=== PATIENT | male | born 1990 | race Caucasian/White ===

== ENCOUNTER 2019-05-10 20:37 | Emergency (ER) | payer SELFPAY ==
[2019-05-10] MEDS ORDERED: Diphtheria,Pertussis(Acell),Tetanus Vaccine 0.5 ML SDV IM ONE (20:54)
[2019-05-10] MEDS ORDERED: Bacitracin/Neomycin/Polymyxin B Oint 0.9 GM U/D Packet TOP ONE (20:54)
--- NOTE | 2019-05-10 20:54 | EDM.PDOC ---
ED HPI GENERAL MEDICAL PROBLEM - General Chief Complaint: Laceration Stated Complaint: LACERATION Time Seen by Provider: 05/10/19 20:45 Source of Information: Reports: Patient. Denies: Old Records (No [facility] records available) History Limitations: Reports: No Limitations - History of Present Illness INITIAL COMMENTS - FREE TEXT/NARRATIVE: The patient drove himself to the emergency room via private automobile for evaluation of a laceration of his left wrist, which occurred at home at about 19 :30 hours this evening. The patient was chiselling some wood at home while working on a project with accidental laceration of his left wrist with the chisel. No history of injury to this area in the past. The patient is right- handed. He does not know when he received his last tetanus booster. No history of foreign body, paresthesias, neurological deficits, or other complaints or injuries. No recent history of abdominal pain, heartburn, nausea, diarrhea, melena, gross hematochezia, or any food intolerance, including fatty foods, etc.. The patient also denies any recent fever, cough, wheezing, dyspnea, etc.. Onset: Today, Sudden Onset Date: 05/10/19 Onset Time: 19:30 Duration: Constant Location: Reports: Upper Extremity, Left. Denies: Head, Face, Neck, Chest, Abdomen, Back, Pelvis, Radiates to Quality: Reports: Same as Previous Episode, Sharp Severity: Moderate Improves with: Reports: Rest Worsens with: Reports: Movement Context: Reports: Trauma (As above) Associated Symptoms: Denies: Confusion, Chest Pain, Cough, Diaphoresis, Fever/ Chills, Headaches, Loss of Appetite, Malaise, Nausea/Vomiting, Shortness of Breath, Syncope, Weakness Treatments MANAGER ROOFING: Reports: Other (see below) (None) L Wrist Pain Score (Numeric/FACES): 5 - Related Data Allergies Allergy/AdvReac Type Severity Reaction Status Date / Time No Known Allergies Allergy Verified 05/10/19 20:43 Home Meds: Home Meds Acetaminophen [Tylenol] 650 mg PO Q4H PRN 05/10/19 [History] Past Medical History HEENT History: Reports: Impaired Vision (Patient wears glasses). Denies: Allergic Rhinitis, Cataract, Glaucoma, Hard of Hearing, Macular Degeneration, Otitis Media, Retinal Detachment Cardiovascular History: Reports: None. Denies: Afib, Aneurysm, Arrhythmia, Blood Clots/VTE/DVT, CAD, Heart Murmur, High Cholesterol, Hypertension, Syncope Respiratory History: Reports: None. Denies: Asthma, Bronchitis, Recurrent, COPD , Intubation, Previous, PE, Pneumothorax, Sleep Apnea, TB Gastrointestinal History: Reports: None. Denies: Celiac Disease, Cholelithiasis , Chronic Constipation, Chronic Diarrhea, Fecal Incontinence, Gastritis, GERD, GI Bleed, Hepatitis, Inflammatory Bowel Disease, Irritable Bowel Syndrome, Jaundice, Pancreatitis, PUD Genitourinary History: Reports: None. Denies: Acute Renal Failure, BPH, Chronic Renal Insuffiency, Renal Calculus, Retention, Urinary, STD, Urinary Incontinence, UTI, Recurrent Musculoskeletal History: Reports: None. Denies: Amputation, Arthritis, Back Pain, Chronic, Fracture, Gout, Neck Pain, Chronic, Osteoarthritis, RA, SLE Neurological History: Reports: None. Denies: Cerebral Aneurysms, Concussion, CVA, Headaches, Chronic, Head Trauma, Migraines, MS, Parkinson's, Seizure, TIA, Vertigo Psychiatric History: Reports: None. Denies: Abuse, Victim of, ADD, ADHD, Addiction, Anxiety, Depression, Psych Hospitalization(s), Psychosis, PTSD, Suicide Attempt, Suicidal Ideation Endocrine/Metabolic History: Reports: None. Denies: Diabetes, Type I, Diabetes , Type II, Diabetes Mellitus, Type 3c, Hypothyroidism, IDDM, Obesity/BMI 30+ Hematologic History: Reports: None. Denies: Anemia, Blood Transfusion(s) Immunologic History: Reports: None. Denies: AIDS, HIV, SLE Oncologic (Cancer) History: Reports: None Dermatologic History: Reports: None. Denies: Eczema, Psoriasis - Infectious Disease History Infectious Disease History: Reports: None. Denies: C-Difficile, Chicken Pox, Measles, Meningitis, Mononucleosis, MRSA, Mumps, Pertussis (Whooping Cough), Rheumatic Fever, Rubella, Scarlet Fever, Shingles, TB, VRE - Past Surgical History Head Surgeries/Procedures: Reports: None HEENT Surgical History: Reports: Oral Surgery, Other (See Below). Denies: Adenoidectomy, Eye Surgery, Laser Surgery, Myringotomy w Tube(s), Naso-Sinus Surgery, Tonsillectomy Other HEENT Surgeries/Procedures: [employer] teeth extraction 4 at age 19 Cardiovascular Surgical History: Reports: None. Denies: Varicose Respiratory Surgical History: Reports: None. Denies: Thoracentesis GI Surgical History: Reports: None. Denies: Appendectomy, Cholecystectomy, Colonoscopy, EGD, Hernia, Abdominal, Hernia, Inguinal, Hernia Repair/Other Male Surgical History: Reports: Circumcision, Other (See Below). Denies: Vasectomy Other Male Surgeries/Procedures: Circumcision as an infant. Endocrine Surgical History: Reports: None Neurological Surgical History: Reports: None Musculoskeletal Surgical History: Reports: None Oncologic Surgical History: Reports: None Dermatological Surgical History: Reports: None Social & Family History - Family History Oncologic: Reports: Esophageal, Other (See Below) Other Oncologic Family History: Father from esophageal cancer at age 59 with history of tobacco use. - Tobacco Use Smoking Status *Q: Current Every Day Smoker Tobacco Use Within Last Twelve Months: Cigarettes Years of Tobacco use: 10 Packs/Tins Daily: 1 Packs/Tins Daily Comment: Started smoking at age 18. Used Tobacco, but Quit: No Smoking Cessation Information Provided To Patient: Yes Second Hand Smoke Exposure: No Second Hand Smoke Education Provided: No - Caffeine Use Caffeine Use: Reports: Coffee (3 cups per day), Soda (1 Soda per week), Tea ( One cup per week). Denies: Energy Drinks - Alcohol Use Alcohol Use History: Yes Days Per Week of Alcohol Use: 5 Number of Drinks Per Day: 3 Number of Drinks Per Day Comment: Usually beer. DWI by in 2018, however no problems with alcohol abuse, previous treatment, etc.. Total Drinks Per Week: 15 Date of Last Drink: 05/10/19 Alcohol Use in Last Twelve Months: Yes - Recreational Drug Use Recreational Drug Use: Yes Drug Use in Last 12 Months: Yes Recreational Drug Type: Reports: Marijuana/Hashish (2 Times per week and started using at age 20.). 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 ED EXAM, SKIN/RASH Exam: See Below Exam Limited By: No Limitations General Appearance: Alert, WD/WN, No Apparent Distress Head: Atraumatic, Normocephalic Neck: Normal Inspection, Supple, Non-Tender, Full Range of Motion. No: Lymphadenopathy (L), Lymphadenopathy (R), Thyromegaly Respiratory/Chest: No Respiratory Distress, Lungs Clear, Normal Breath Sounds, No Accessory Muscle Use, Chest Non-Tender. No: Pleural Rub, Retractions Cardiovascular: Normal Peripheral Pulses, Regular Rate, Rhythm, No Edema, No Gallop, No JVD, No Murmur, No Rub. No: Gallop/S3, Gallop/S4, Friction Rub Peripheral Pulses: 2+: Radial (L), Radial (R) GI/Abdominal: Normal Bowel Sounds, Soft, Non-Tender, No Organomegaly, No Distention, No Abnormal Bruit, No Mass, Pelvis Stable. No: Guarding (Male) Exam: Deferred Rectal (Males) Exam: Deferred Back Exam: Normal Inspection, Full Range of Motion. No: CVA Tenderness (L), CVA Tenderness (R), Muscle Spasm Extremities: Normal Range of Motion, No Pedal Edema, Normal Capillary Refill, Other (4 cm in length laceration over the ventral aspect of the left wrist with no significant vascular, tendon, or nerve involvement. No foreign body). No: Non-Tender (Mild Tenderness over laceration site.), Halima's Sign Neurological: Alert, Oriented, CN II-XII Intact, Normal Cognition, Normal Gait, No Motor/Sensory Deficits Skin: Warm, Normal Color, No Rash, Wound/Incision (As above) Location, Skin: Upper Extremity, Left Characteristics: Linear, Other (As above) Associated features: Tenderness Lymphatic: No Adenopathy ED SKIN PROCEDURES - Laceration/Wound Repair Left Ventral Wrist Appearance: Subcutaneous Distal NVT: Neuro & Vascular Intact, No Tendon Injury Anesthetic Type: Local Local Anesthesia - Lidocaine (Xylocaine): 1% Plain Local Anesthetic Volume: Other (9 cc) Skin Prep: Providone-Iodine (Betadine) Saline Irrigation (cc's): 0 Exploration/Debridement/Repair: Wound Explored, In a Bloodless Field, Explored to Base, No Foreign Material Found, Multiple Flaps Aligned Closed with: Sutures Lac/Wound length In cm: 4.0 Suture Size: 4-0 # of Sutures: 8 Suture Type: Nylon, Interrupted, Simple Drain Placement: No Sterile Dressing Applied: Nurse Tetanus Status Addressed: Yes Complications: No Course - Vital Signs Last Recorded V/S: Last Vital Signs Temp 36.3 C 05/10/19 20:52 Pulse 84 05/10/19 20:52 Resp 14 05/10/19 20:52 BP 125/69 05/10/19 20:52 Pulse Ox 100 05/10/19 20:52 Vital Signs - 24 hr 05/10/19 20:52 Temperature [ 36.3 C Temporal] Pulse, 84 Peripheral [ Pulse Oximetry] Respiratory 14 Rate Blood Pressure 125/69 [Right Upper Arm] O2 Sat by Pulse 100 Oximetry - Orders/Labs/Meds Orders: Active Orders 24 hr Category Date Time Status Vaccines to be Administered [RC] PER UNIT ROUTINE Care 05/10/19 20:54 Active Obtain Past Medical Record [OM.PC] Routine Oth 05/10/19 20:54 Active Labs: None Meds: Medications Discontinued Medications Generic Name Dose Route Start Last Admin Trade Name Freq PRN Reason Stop Dose Admin Diphtheria/Tetanus/Acell Pertussis 0.5 ml 05/10/19 20:54 05/10/19 21:03 Adacel IM 05/10/19 20:55 0.5 ml .ONCE ONE Administration Lidocaine HCl 5 ml 05/10/19 20:54 Xylocaine-Mpf 1% INJECT 05/10/19 20:55 ONETIME ONE Lidocaine HCl 5 ml 05/10/19 20:54 Xylocaine-Mpf 1% INJECT 05/10/19 20:55 ONETIME ONE Neomycin/Polymyxin/Bacitracin 1 each 05/10/19 20:54 05/10/19 21:04 Triple Antibiotic Oint TOP 05/10/19 20:55 1 each ONETIME ONE Administration - Radiology Interpretation Free Text/Narrative:: None Departure - Departure Time of Disposition: 21:30 Disposition: Home, Self-Care 01 Condition: Good Clinical Impression: Laceration, Tobacco abuse counseling, Illicit drug use, continuous - Discharge Information *PRESCRIPTION DRUG MONITORING PROGRAM REVIEWED*: Not Applicable *COPY OF PRESCRIPTION DRUG MONITORING REPORT IN PATIENT DEENA: Not Applicable Instructions: Steps to Quit Smoking, [id number], Health Risks of Smoking, Laceration Care, Adult, [id number], Stitches, [place], or Adhesive Wound Closure, [id number], VIS, Tetanus, Diphtheria, and Pertussis (Tdap) - [facility] () Referrals: PCP,None [Primary Care Provider] - Forms: ED Department Discharge Additional Instructions: 1. Followup with your regular provider in 10-14 days as directed for suture removal. Bring these discharge instructions with you to that visit. 2. Antibacterial soap wash/soak with subsequent antibacterial dressing such as Neosporin, etc. as directed 2 times per day until the wound or laceration site completely heals. Keep the area clean and dry with activity restrictions as discussed. Never use hydrogen peroxide for wound care. 3. Tylenol 650 mg by mouth every 4 hours and/or OTC ibuprofen 2-3 tabs by mouth every 6 hours with food as directed./needed. You may stagger these medications for 48-72 hours only, which essentially means that you are receiving a pain medication about every 2 hours. 4. Stop all tobacco and marijuana use KAPIL as directed/per provided information and consider contacting Quit LIne, etc.. 5. Immediately after this visit verify that your cellular telephone's voicemail has been activated and is empty. Also verify that your home telephone 's answering machine is operating properly and has space to receive messages. Note that it is sometimes necessary for us to be able to contact you at a later date to discuss your medical care. 6. Please remember that we are ALWAYS here for you and want to answer any questions you may have. Feel free to call the hospital any time and we call you back KAPIL. - Problem List & Annotations (1) Laceration SNOMED Code(s): 994483582 Code(s): WGI1283 - Status: Acute Priority: High Onset Date: 05/10/19 Annotation/Comment:: Excellent results with laceration repair as above. DTaP given. Wound care, activity restrictions, etc. discussed. (2) Tobacco abuse counseling SNOMED Code(s): 991056220, 874484855, 909388163 Code(s): Z71.6 - TOBACCO ABUSE COUNSELING Status: Chronic Priority: Medium Annotation/Comment:: Tobacco cessation strongly encouraged with information provided at discharge. (3) Illicit drug use, continuous SNOMED Code(s): 953391246 Code(s): F19.90 - OTHER PSYCHOACTIVE SUBSTANCE USE, UNSPECIFIED, UNCOMPLICATED Status: Chronic Priority: Medium Annotation/Comment:: Patient strongly encouraged to discontinue marijuana use. - Problem List Review Problem List Initiated/Reviewed/Updated: Yes - My Orders Last 24 Hours: My Active Orders 05/10/19 20:54 Vaccines to be Administered [RC] PER UNIT ROUTINE Obtain Past Medical Record [OM.PC] Routine - Assessment/Plan Last 24 Hours: My Active Orders 05/10/19 20:54 Vaccines to be Administered [RC] PER UNIT ROUTINE Obtain Past Medical Record [OM.PC] Routine Assessment:: As above Plan: As above. Extensive precautions were given to the patient, who is in agreement with the treatment plan. See Patient Instructions for further treatment and plan.
== END 2019-05-10 21:30 | disposition home or self-care (01) ==
LOC: LL.ED 20:37
DX: S61.512A Laceration without foreign body of left wrist, initial encounter (principal); F19.90 Other psychoactive substance use, unspecified, uncomplicated; F17.210 Nicotine dependence, cigarettes, uncomplicated; Z71.6 Tobacco abuse counseling; Z90.49 Acquired absence of other specified parts of digestive tract; Z98.890 Other specified postprocedural states; W26.8XXA Contact with other sharp object(s), not elsewhere classified, initial encounter; Z23 Encounter for immunization
CPT/HCPCS: 12002; 90471; 90715; 99282; J2001

== ENCOUNTER 2022-04-13 13:35 | Inpatient (IN) | payer OTHER ==
[2022-04-13] MEDS ORDERED: LORazepam 2 MG/ML SDV IVPUSH PRN (14:51)
[2022-04-13] MEDS ORDERED: Flumazenil 0.1 MG/ML 5 ML MDV IVPUSH PRN (15:04)
[2022-04-13] MEDS: LORazepam 2 MG/ML SDV IVPUSH PRN (16:17)
[2022-04-13] MEDS: Acetaminophen 325 MG Tab PO PRN (16:18)
[2022-04-13] MEDS ORDERED: LORazepam 1 MG Tab ONE ×2 (17:10→19:12)
[2022-04-14] MEDS: LORazepam 1 MG Tab PO PRN ×3 (03:33→14:42)
[2022-04-14 08:15] LABS: ANION GAP 14.9 meq/L (7-15)
[2022-04-14] MEDS: Nicotine 21 MG/24 Hr Patch TRDERM SCH (09:10)
[2022-04-14] MEDS: Acetaminophen 325 MG Tab PO PRN (09:11)
[2022-04-14] MEDS: LORazepam 2 MG/ML SDV IVPUSH PRN ×2 (16:30→18:30)
[2022-04-14] MEDS: FLUoxetine 20 MG Cap PO SCH (18:32)
[2022-04-14] MEDS ORDERED: Haloperidol Lactate 5 MG/ML SDV IVPUSH PRN (20:16)
[2022-04-15] MEDS: Nicotine 21 MG/24 Hr Patch TRDERM SCH (07:52)
[2022-04-15] MEDS: FLUoxetine 20 MG Cap PO SCH (07:52)
[2022-04-15] MEDS: LORazepam 2 MG/ML SDV IVPUSH PRN (07:54)
[2022-04-15] MEDS ORDERED: Sodium Chloride 0.9% 10 ML Syringe FLUSH PRN (07:55)
[2022-04-15] MEDS: LORazepam 1 MG Tab PO PRN ×2 (11:48→14:35)
[2022-04-15 14:12] LABS: ANION GAP 11.6 meq/L (7-15)
[2022-04-15] MEDS: Folic Acid 1 MG Tab PO SCH (14:35)
[2022-04-15] MEDS: Thiamine 100 MG Tab PO SCH (14:35)
[2022-04-15] MEDS ORDERED: Potassium Chloride 20 MEQ Tab.ER PO ONE (15:39)
[2022-04-15] MEDS ORDERED: Magnesium Sulfate/Water 2 GM in Premix Bag 1 BAG IV ONE (15:39)
[2022-04-15] MEDS ORDERED: Sodium Chloride 0.9% 500 ML IV SCH (22:15)
[2022-04-16 07:58] LABS: ANION GAP 8.4 meq/L (7-15)
[2022-04-16] MEDS ORDERED: Magnesium Sulfate/D5W 1 GM/100 ML Premix Bag IV ONE (09:17)
[2022-04-16] MEDS: FLUoxetine 20 MG Cap PO SCH (09:52)
[2022-04-16] MEDS: Thiamine 100 MG Tab PO SCH (09:52)
[2022-04-16] MEDS: Folic Acid 1 MG Tab PO SCH (09:52)
[2022-04-16] MEDS: Nicotine 21 MG/24 Hr Patch TRDERM SCH (09:53)
== END 2022-04-16 14:41 | disposition home or self-care (01) | DRG 897 ==
LOC: LL.MS 13:35
PROVIDERS: ADMIT Family Medicine; ATTEND Hospitalist
DX: F10.239 Alcohol dependence with withdrawal, unspecified (principal); R56.9 Unspecified convulsions; D69.6 Thrombocytopenia, unspecified; F39 Unspecified mood [affective] disorder; E83.42 Hypomagnesemia; H54.7 Unspecified visual loss; E87.6 Hypokalemia; Y90.0 Blood alcohol level of less than 20 mg/100 ml
CPT/HCPCS: 36415; 70450; 80048; 83735; 85025; 99223; 99232; 99233; 99238; A9270-GY; J1630; J2060; J3475; J7040

== ENCOUNTER 2022-07-03 11:19 | Inpatient (IN) | payer OTHER ==
[2022-07-03] MEDS ORDERED: LORazepam 1 MG Tab PO ONE ×2 (11:42→12:00)
[2022-07-03] MEDS ORDERED: Polyethylene Glycol 3350 Powder 17 GM Packet PO PRN (11:52)
[2022-07-03] MEDS: Lactated Ringers 1,000 ML IV SCH ×2 (12:53→18:59)
[2022-07-03] MEDS: Folic Acid 1 MG Tab PO SCH (12:53)
[2022-07-03] MEDS: Thiamine 100 MG Tab PO SCH (12:53)
[2022-07-03] MEDS: Vitamin B6-pyridOXINE 100 MG Tab PO SCH (12:53)
[2022-07-03] MEDS: Magnesium Chloride 64 MG Tab.ER PO SCH (12:53)
[2022-07-03] MEDS: Multivitamin Tab PO SCH (12:53)
[2022-07-03] MEDS ORDERED: Ondansetron 4 MG/2 ML SDV IVPUSH PRN (13:00)
[2022-07-03] MEDS ORDERED: Acetaminophen 325 MG Tab PO PRN (13:00)
[2022-07-03] MEDS ORDERED: Ondansetron 4 MG Tab.DIS PO PRN (13:00)
[2022-07-03] MEDS: Nicotine 21 MG/24 Hr Patch TRDERM SCH (15:11)
[2022-07-03] MEDS: LORazepam 1 MG Tab PO PRN ×2 (18:58→21:37)
[2022-07-04] MEDS: Thiamine 100 MG Tab PO SCH (08:25)
[2022-07-04] MEDS: Multivitamin Tab PO SCH (08:25)
[2022-07-04] MEDS: Nicotine 21 MG/24 Hr Patch TRDERM SCH (08:25)
[2022-07-04] MEDS: FLUoxetine 20 MG Cap PO SCH (08:25)
[2022-07-04] MEDS: Folic Acid 1 MG Tab PO SCH (08:25)
[2022-07-04] MEDS: Vitamin B6-pyridOXINE 100 MG Tab PO SCH (08:25)
[2022-07-04] MEDS: Magnesium Chloride 64 MG Tab.ER PO SCH (08:25)
[2022-07-04] MEDS: Remove Patch NICOTINE PATCH TRDERM SCH (08:27)
[2022-07-04] MEDS: Cyclobenzaprine 10 MG Tab PO PRN ×2 (10:40→21:37)
[2022-07-04] MEDS ORDERED: Potassium Chloride 20 MEQ Tab.ER PO ONE ×2 (16:15→22:00)
[2022-07-05 07:54] LABS: ANION GAP 10.1 meq/L (7-15)
[2022-07-05] MEDS: Nicotine 21 MG/24 Hr Patch TRDERM SCH (08:01)
[2022-07-05] MEDS: FLUoxetine 20 MG Cap PO SCH (08:02)
[2022-07-05] MEDS: Magnesium Chloride 64 MG Tab.ER PO SCH (08:02)
[2022-07-05] MEDS: Thiamine 100 MG Tab PO SCH (08:02)
[2022-07-05] MEDS: Multivitamin Tab PO SCH (08:02)
[2022-07-05] MEDS: Remove Patch NICOTINE PATCH TRDERM SCH (08:03)
[2022-07-05] MEDS: Vitamin B6-pyridOXINE 100 MG Tab PO SCH (08:04)
[2022-07-05] MEDS: Folic Acid 1 MG Tab PO SCH (08:04)
== END 2022-07-05 17:33 | disposition home or self-care (01) | DRG 897 ==
LOC: LL.MS 11:19
PROVIDERS: ADMIT Hospitalist; ATTEND Hospitalist
DX: F10.239 Alcohol dependence with withdrawal, unspecified (principal); F41.9 Anxiety disorder, unspecified; H54.7 Unspecified visual loss; F32.A Depression, unspecified; F17.210 Nicotine dependence, cigarettes, uncomplicated; Z79.899 Other long term (current) drug therapy
CPT/HCPCS: 36415; 80048; 80053; 80307; 83605; 83735; 84100; 85025; A9270-GY; J3475; J7120

== ENCOUNTER 2022-08-18 16:13 | Inpatient (IN) | payer OTHER ==
[2022-08-18] MEDS ORDERED: Acetaminophen 325 MG Tab PO PRN (16:19)
[2022-08-18] MEDS ORDERED: Sodium Chloride 0.9% 10 ML Syringe FLUSH PRN (16:26)
[2022-08-18 17:11] LABS: ANION GAP 9.7 meq/L (7-15); CHLORIDE,CL 100 mmol/L (98-107); ESTIMATED GFR 120 mL/min (>=60); SODIUM,NA 140 mmol/L (136-145)
[2022-08-18] MEDS: Nicotine 21 MG/24 Hr Patch TRDERM SCH (17:31)
[2022-08-18] MEDS: LORazepam 2 MG/ML SDV IVPUSH PRN ×2 (20:06→21:12)
[2022-08-19] MEDS: LORazepam 2 MG/ML SDV IVPUSH PRN ×4 (04:10→22:47)
[2022-08-19] MEDS: Nicotine 21 MG/24 Hr Patch TRDERM SCH (08:06)
[2022-08-19] MEDS: Sodium Chloride 0.9% 10 ML Syringe FLUSH PRN ×2 (08:20→15:04)
[2022-08-19 11:58] LABS: ANION GAP 9.5 meq/L (7-15); CHLORIDE,CL 100 mmol/L (98-107); SODIUM,NA 139 mmol/L (136-145)
[2022-08-19 12:03] LABS: ESTIMATED GFR 128 mL/min (>=60)
[2022-08-20] MEDS: Nicotine 21 MG/24 Hr Patch TRDERM SCH ×2 (07:41→14:47)
[2022-08-20] MEDS: Magnesium Chloride 64 MG Tab.ER PO SCH ×2 (10:29→17:53)
[2022-08-20] MEDS: FLUoxetine 20 MG Cap PO SCH (10:29)
[2022-08-20 10:33] LABS: ANION GAP 9.8 meq/L (7-15)
[2022-08-20] MEDS ORDERED: Melatonin 3 MG Tab PO PRN (16:35)
[2022-08-20] MEDS ORDERED: Thiamine 100 MG Tab PO SCH (20:00)
[2022-08-21] MEDS ORDERED: Cholecalciferol (Vitamin D3) 25 MCG Tab PO SCH (08:00)
[2022-08-21] MEDS: FLUoxetine 20 MG Cap PO SCH (08:25)
[2022-08-21] MEDS: Magnesium Chloride 64 MG Tab.ER PO SCH (08:25)
[2022-08-21] MEDS: Nicotine 21 MG/24 Hr Patch TRDERM SCH (08:25)
[2022-08-21] MEDS ORDERED: Multivitamin Tab PO SCH (11:00)
== END 2022-08-21 15:05 | disposition home or self-care (01) | DRG 897 ==
LOC: LL.MS 16:13
PROVIDERS: ADMIT Physician Assistant; ATTEND Emergency Medicine
DX: F10.239 Alcohol dependence with withdrawal, unspecified (principal); E46 Unspecified protein-calorie malnutrition; R56.9 Unspecified convulsions; H54.7 Unspecified visual loss; E87.6 Hypokalemia; E83.42 Hypomagnesemia; F41.8 Other specified anxiety disorders; F17.210 Nicotine dependence, cigarettes, uncomplicated; E53.8 Deficiency of other specified B group vitamins; G47.00 Insomnia, unspecified; Z79.899 Other long term (current) drug therapy; Z98.890 Other specified postprocedural states
CPT/HCPCS: 36415; 80048; 80053; 80307; 82746; 83735; 85025; A9270-GY; J2060; J3490

== ENCOUNTER 2022-10-16 10:02 | Inpatient (IN) | payer OTHER ==
[2022-10-16] MEDS ORDERED: Lactated Ringers 1,000 ML IV ONE (10:31)
[2022-10-16] MEDS ORDERED: LORazepam 2 MG/ML SDV IVPUSH ONE (10:32)
[2022-10-16 11:29] LABS: ANION GAP 16.4 meq/L (7-15); CHLORIDE,CL 97 mmol/L (98-107); ESTIMATED GFR 127 mL/min (>=60); SODIUM,NA 143 mmol/L (136-145)
[2022-10-16] MEDS ORDERED: Ondansetron 4 MG/2 ML SDV IVPUSH PRN (14:00)
[2022-10-16] MEDS ORDERED: Haloperidol Lactate 5 MG/ML SDV IVPUSH PRN (14:00)
[2022-10-16] MEDS: Nicotine 14 MG/24 Hr Patch TRDERM SCH (14:03)
[2022-10-16 14:04] LABS: BARBITURATE SCREEN,URINE NEGATIVE (NEGATIVE); BENZODIAZEPINES SCREEN,URINE NEGATIVE (NEGATIVE); EDDP,URINE SCREEN NEGATIVE (NEGATIVE); TCA SCREEN,URINE NEGATIVE (NEGATIVE); THC SCREEN,URINE 50 NG/ML POSITIVE (NEGATIVE)
[2022-10-16 14:08] LABS: BUPRENORPHINE SCREEN,URINE NEGATIVE (NEGATIVE)
[2022-10-16] MEDS: Acetaminophen 325 MG Tab PO PRN (14:50)
[2022-10-16] MEDS: Lactated Ringers 1,000 ML IV SCH ×3 (14:51→23:46)
[2022-10-16] MEDS ORDERED: Sodium Chloride 0.9% 10 ML Syringe FLUSH PRN (14:52)
[2022-10-16] MEDS ORDERED: LORazepam 2 MG/ML SDV IV PRN (15:00)
[2022-10-16] MEDS ORDERED: LORazepam 2 MG/ML SDV IVPUSH PRN (15:00)
[2022-10-16] MEDS: Magnesium Oxide 400 MG Tab PO SCH (18:27)
[2022-10-16] MEDS: Folic Acid 1 MG Tab PO SCH (19:53)
[2022-10-16] MEDS: FLUoxetine 20 MG Cap PO SCH (19:53)
[2022-10-16] MEDS: Thiamine 100 MG Tab PO SCH (19:53)
[2022-10-16] MEDS ORDERED: LORazepam 1 MG Tab PO ONE (23:55)
[2022-10-17] MEDS: Lactated Ringers 1,000 ML IV SCH ×2 (09:36→19:49)
[2022-10-17] MEDS: Nicotine 14 MG/24 Hr Patch TRDERM SCH (10:23)
[2022-10-17] MEDS: Remove Patch NICOTINE PATCH TRDERM SCH (10:25)
[2022-10-17] MEDS: Magnesium Oxide 400 MG Tab PO SCH (10:25)
[2022-10-17] MEDS: Multivitamin Tab PO SCH (10:25)
[2022-10-17] MEDS: Acetaminophen 325 MG Tab PO PRN (11:09)
[2022-10-17] MEDS: LORazepam 1 MG Tab PO PRN ×2 (11:52→19:47)
[2022-10-17 15:11] LABS: ANION GAP 7.9 meq/L (7-15)
[2022-10-17] MEDS ORDERED: Magnesium Sulfate/Water 2 GM in Premix Bag 1 BAG IV ONE (17:41)
[2022-10-17] MEDS: Magnesium Chloride 64 MG Tab.ER PO SCH (18:11)
[2022-10-17] MEDS: Thiamine 100 MG Tab PO SCH (19:47)
[2022-10-17] MEDS: FLUoxetine 20 MG Cap PO SCH (19:47)
[2022-10-17] MEDS: Folic Acid 1 MG Tab PO SCH (19:47)
[2022-10-18] MEDS: Lactated Ringers 1,000 ML IV SCH (07:54)
[2022-10-18] MEDS: Nicotine 14 MG/24 Hr Patch TRDERM SCH (08:01)
[2022-10-18] MEDS: Acetaminophen 325 MG Tab PO PRN (08:04)
[2022-10-18] MEDS: Multivitamin Tab PO SCH (08:05)
[2022-10-18] MEDS: Remove Patch NICOTINE PATCH TRDERM SCH (08:05)
[2022-10-18] MEDS: Magnesium Chloride 64 MG Tab.ER PO SCH ×2 (08:05→17:02)
[2022-10-18 08:35] LABS: ANION GAP 9.2 meq/L (7-15)
[2022-10-18 19:24] VITALS: BP 127/80; PULSE 72
[2022-10-18] MEDS: FLUoxetine 20 MG Cap PO SCH (19:29)
[2022-10-18] MEDS: Thiamine 100 MG Tab PO SCH (19:29)
[2022-10-18] MEDS: Folic Acid 1 MG Tab PO SCH (19:29)
[2022-10-18] MEDS ORDERED: Magnesium Sulfate/Water 2 GM in Premix Bag 1 BAG IV ONE (21:12)
[2022-10-18] MEDS ORDERED: Nicotine 14 MG/24 Hr Patch TRDERM ONE (21:44)
[2022-10-18] MEDS ORDERED: traZODone 50 MG Tab PO ONE (23:00)
== END 2022-10-18 23:55 | disposition home or self-care (01) | DRG 897 ==
LOC: LL.ED 10:02 → LL.MS 13:17
PROVIDERS: ADMIT Physician Assistant Medical; ATTEND Hospitalist
DX: F10.229 Alcohol dependence with intoxication, unspecified (principal); F41.9 Anxiety disorder, unspecified; F32.A Depression, unspecified; E87.6 Hypokalemia; E83.42 Hypomagnesemia; D69.59 Other secondary thrombocytopenia; F41.8 Other specified anxiety disorders; Z87.891 Personal history of nicotine dependence
CPT/HCPCS: 36415; 80048; 80053; 80305-QW; 80307; 82150; 83690; 83735; 85025; 85027; 86140; A9270-GY; J2060; J2405; J3475; J3490; J7120

== ENCOUNTER 2023-03-11 13:10 | Emergency (ER) | payer OTHER ==
[2023-03-11 13:35] LABS: BASOPHILS ABSOLUTE AUTO 0.05 K/uL (0.00-0.20); BASOPHILS PERCENT AUTO 0.6 % (0.0-2.0); EOSINOPHILS ABSOLUTE AUTO 0.02 K/uL (0.00-0.50); EOSINOPHILS PERCENT AUTO 0.3 % (0.0-5.0); HEMATOCRIT 44.3 % (39.0-49.0); HEMOGLOBIN 15.7 g/dL (13.1-16.8); LYMPHOCYTES ABSOLUTE AUTO 2.63 K/uL (0.50-3.50); MEAN CORPUSCULAR HEMOGLOBIN 31.2 pg (28.2-33.3); MEAN CORPUSCULAR HGB CONC 35.4 g/dL (31.7-36.0); MEAN CORPUSCULAR VOLUME 87.9 fL (84.0-98.0); MONOCYTES ABSOLUTE AUTO 0.39 K/uL (0.00-1.00); NEUTROPHILS ABSOLUTE AUTO 4.64 K/uL (1.40-7.00); NEUTROPHILS PERCENT AUTO 60.1 % (45.0-80.0); PLATELET COUNT,PLT 186 K/uL (150-350); RED BLOOD CELL COUNT 5.04 M/uL (4.33-5.41); RED CELL DISTRIBUTION WIDTH 13.2 % (11.2-14.1); WHITE BLOOD CELL COUNT,WBC 7.7 K/uL (4.0-10.2)
[2023-03-11] MEDS: diphenhydrAMINE 50 MG/ML SDV IM ONE (14:08)
[2023-03-11] MEDS: LORazepam 2 MG/ML SDV IM ONE (14:08)
[2023-03-11] MEDS: Haloperidol Lactate 5 MG/ML SDV IM ONE (14:08)
[2023-03-11 14:12] LABS: ALBUMIN 4.6 g/dL (3.4-5.0); BILIRUBIN TOTAL 1.3 mg/dL (0.2-1.0); CALCIUM 8.8 mg/dL (8.5-10.1); CARBON DIOXIDE,CO2 25.7 mmol/L (21.0-32.0); CREATININE 0.85 mg/dL (0.51-1.17); EST CRCL DRUG DOSING (CG) 112.51 mL/min; ETHANOL BLOOD MEDICAL 0.335 g/dL (0.000-0.080); MAGNESIUM 1.8 mg/dL (1.8-2.4); POTASSIUM,K 3.1 mmol/L (3.5-5.1); PROTEIN TOTAL,TP 7.7 g/dL (6.4-8.2)
[2023-03-11 14:16] LABS: ANION GAP 18.4 meq/L (7-15)
[2023-03-11] MEDS: OLANZapine 10 MG Vial IM ONE (14:18)
[2023-03-11] MEDS: Nicotine 21 MG/24 Hr Patch TRDERM ONE (14:29)
[2023-03-11] MEDS: Sodium Chloride 0.9% 1,000 ML IV ONE (14:37)
[2023-03-11] MEDS: Thiamine 100 MG in Sodium Chloride 0.9% 100 ML IV ONE (14:48)
[2023-03-11] MEDS: Potassium Chloride Riders 10 MEQ in Premix Bag 1 BAG IV ONE ×2 (14:50→16:03)
[2023-03-11] MEDS: Nicotine 21 MG/24 Hr Patch ONE (14:59)
[2023-03-11] MEDS: Haloperidol Lactate 5 MG/ML SDV ONE (14:59)
[2023-03-11] MEDS: diphenhydrAMINE 50 MG/ML SDV ONE (15:00)
[2023-03-11] MEDS: LORazepam 2 MG/ML SDV IVPUSH ONE (15:06)
[2023-03-11] MEDS: Haloperidol Lactate 5 MG/ML SDV IVPUSH ONE (15:06)
[2023-03-11] MEDS: diphenhydrAMINE 50 MG/ML SDV IVPUSH ONE (15:06)
[2023-03-11] MEDS: Sodium Chloride 0.9% 250 ML IV SCH (15:07)
[2023-03-11] MEDS: Potassium Chloride Riders 50 ML ONE (16:04)
== END 2023-03-11 16:10 ==
LOC: LL.ED 13:10
DX: F10.10 Alcohol abuse, uncomplicated (principal); E87.6 Hypokalemia; R74.02 Elevation of levels of lactic acid dehydrogenase [LDH]; F17.210 Nicotine dependence, cigarettes, uncomplicated
CPT/HCPCS: 36415; 80053; 80307; 83605; 83735; 85025; 94761; 96365; 96368; 96372; 96376; 99285-25; A9270-GY; J1200; J1630; J2060; J2405; J3411; J3480; J3490; J7030; J7050